=== PATIENT | female | born 1980 | race Caucasian/White ===

== ENCOUNTER 2018-08-06 08:39 | Outpatient (REF) | payer BC, SELFPAY ==
[2018-08-06 13:10] LABS: Cholesterol 232 mg/dL (50-200); Glucose 91 mg/dL (70-100); HDL Cholesterol 67 mg/dL (40-60); LDL CHOLESTEROL 147 mg/dL (<100); TSH (W/Ref FT4) 1.38 uIU/mL (0.358-3.74); Triglyceride 90 mg/dL (30-150)
== END 2018-08-06 08:59 ==
LOC: NCHCN 08:39
PROVIDERS: PCP Family Medicine; Visit Provider Family Medicine
DX: Z00.00 Encounter for general adult medical examination without abnormal findings (principal); R63.5 Abnormal weight gain; Z13.1 Encounter for screening for diabetes mellitus; Z13.220 Encounter for screening for lipoid disorders
CPT/HCPCS: 80061; 82947; 83721; 84443

== ENCOUNTER 2018-10-23 12:08 | Outpatient (REF) | payer BC, SELFPAY ==
[2018-10-23 15:31] LABS: *AMPHETAMINES SCREEN URINE Negative (Negative); *BARBITURATES SCREEN URINE Negative (Negative); *BENZODIAZEPINES SCREEN URINE Negative (Negative); Cannabinoids THC Negative (Negative); Cocaine Screen,Urine Negative (Negative); METHADONE URINE SCREEN Negative (Negative); OPIATES URINE SCREEN Negative (Negative)
[2018-10-23 15:34] LABS: Tricyclic Antidepressants Negative (Negative)
[2018-10-28 08:09] LABS: Buprenorphine Negative; Norbuprenorphine Negative
== END 2018-10-23 12:28 ==
LOC: LBN 12:08
PROVIDERS: PCP Family Medicine; Visit Provider Advanced Practice Midwife
DX: Z34.91 Encounter for supervision of normal pregnancy, unspecified, first trimester (principal)
CPT/HCPCS: 80307; 87077; 87086

== ENCOUNTER 2018-10-30 14:20 | Outpatient (CLI) | payer BC, SELFPAY ==
[2018-10-30 14:43] LABS: Abs Immature Grans 0.01 k/cumm (0.0-0.09); Absolute Basophil Count 0.01 k/cumm (0.0-0.2); Absolute Lymphocyte Count 1.91 k/cumm (1.2-3.4); Absolute Neutrophil Count 6.05 k/cumm (1.2-6.7); Basophils % 0.1; Eosinophils % 4.5; HCT 32.8 % (36.0-46.0); HGB 11.7 g/dL (12.0-15.5); Immature Grans % 0.1; Lymphocytes % 21.5; Mean Corp. HGB Concentration 35.7 g/dL (32.0-36.0); Mean Corpuscular Hemoglobin 31.6 pg (27.0-33.0); Mean Corpuscular Volume 88.6 fL (80-95); Mean Platelet Volume 10.4 fL (8.0-11.0); Monocytes % 5.6; Neutrophils % 68.2; Platelet Count 234 x1000/uL (130-400); RBC Distribution Width 11.2 % (11.7-14.6); White Blood Cell Count 8.88 k/cumm (4.4-10.8)
[2018-10-30 14:51] LABS: Glucose,1 Hr (Glucola) 127 mg/dL (80-140)
[2018-10-30 23:27] LABS: TSH (W/Ref FT4) 0.06 uIU/mL (0.358-3.74)
[2018-10-31 00:16] LABS: FREE T4 1.16 ng/dL (0.76-1.46)
[2018-10-31 09:33] LABS: HIV-1/2 Ag & Ab Screen Negative (NEGAT)
[2018-11-02 11:25] LABS: Hepatitis B Surface Ag Negative (NEGAT)
[2018-11-02 11:46] LABS: Varicella IgG Antibody Positive
[2018-11-02 11:49] LABS: Syphilis Serology (RPR) Negative (Negative)
[2018-11-02 12:00] LABS: Hepatitis C Ab w Rflx HCV PCR Negative (NEGAT)
[2018-11-02 13:13] LABS: Rubella IgG Ab (UVM) Positive
== END 2018-10-30 14:40 ==
PROVIDERS: PCP Family Medicine; Visit Provider Advanced Practice Midwife
DX: Z34.91 Encounter for supervision of normal pregnancy, unspecified, first trimester (principal); Z11.4 Encounter for screening for human immunodeficiency virus [HIV]; Z11.59 Encounter for screening for other viral diseases; Z01.84 Encounter for antibody response examination
CPT/HCPCS: 36415; 80055; 82950; 86787; 86803; 86850; 86900; 86901; 87340; 87389; 84439; 84443; 86592; 86762

== ENCOUNTER 2018-11-06 12:53 | Outpatient (REF) | payer BC, SELFPAY ==
[2018-11-09 13:40] LABS: Chlamydia Result Negative; GC Result Negative; Specimen Description CERVIX
== END 2018-11-06 13:13 ==
LOC: LBN 12:53
PROVIDERS: PCP Family Medicine; Visit Provider Advanced Practice Midwife
DX: Z34.91 Encounter for supervision of normal pregnancy, unspecified, first trimester (principal)
CPT/HCPCS: 87491; 87591

== ENCOUNTER 2018-11-11 11:03 | Outpatient (CLI) | payer BC, SELFPAY ==
[2018-11-11 11:45] LABS: Kit/Specimen SENT
[2018-11-19 16:58] LABS: Specimen WB Whole Blood
== END 2018-11-11 11:23 ==
PROVIDERS: PCP Family Medicine; Visit Provider Advanced Practice Midwife
DX: Z34.91 Encounter for supervision of normal pregnancy, unspecified, first trimester (principal); Z36.89 Encounter for other specified antenatal screening; O09.521 Supervision of elderly multigravida, first trimester
CPT/HCPCS: 36415; 81329

== ENCOUNTER 2018-12-28 10:04 | Outpatient (CLI) | payer BC, SELFPAY ==
[2018-12-28 11:54] LABS: TSH (W/Ref FT4) 0.79 uIU/mL (0.358-3.74)
== END 2018-12-28 10:24 ==
PROVIDERS: PCP Family Medicine; Visit Provider Advanced Practice Midwife
DX: Z34.92 Encounter for supervision of normal pregnancy, unspecified, second trimester (principal)
CPT/HCPCS: 36415; 84443; 87086

== ENCOUNTER 2019-01-06 00:18 | Outpatient (CLI) | payer BC, SELFPAY ==
--- NOTE | 2019-01-06 10:56 | DI.US_ITS ---
SYMPTOMS/DIAGNOSIS: LIMITED VIEW OF VENTRAL WALL/ABDOMINAL INSERTION, Z34.90 OB ULTRASOUND: Predicted Gestational Age: Indication/History: 21+5 Wks Range: to Prior US done on: Determined by: First US LMP History EDC by prior US: 05/14/19 For multiple gestations: Baby PLACENTA: Grade: 0-I Location: Anterior X Posterior PRESENTATION: RT X LT LOW LYING PREVIA Cephalic Trans (Head RT LT ) Varied Breech X BIOMETRY: Anatomy Identified: BPD: mm wks 4 chamber Heart Heart Rate 140 BPM HC: mm wks LVOT Post Fossa AC: mm wks RVOT Ventricles FL: mm wks Stomach Nose Bladder Lips Cisterna Magna: mm CI: Kidneys Palate Cerebellum: mm 3 vessel cord Spine EFW: grms % Cord Insertion X NS= not seen Composite Age (US) wks Many abnormalities cannot be diagnosed. A normal exam does not exclude congenital abnormality. EDC by US Amniotic Fluid Index: Normal RUQ: LUQ: RLQ: LLQ: Total: cm Biophysical Profile: Score 0/2 NELLA (>2cm) Respirations (>30 sec) Body flexion/extension Extremity flexion/extension TOTAL SCORE COMMENTS: The limited examination reveals a grade 0-I left posterior placenta. The cord insertion is normal. The cardiac rate was 140 beats per minute. Amniotic fluid is normal.
== END 2019-01-06 00:38 ==
PROVIDERS: PCP Family Medicine; Visit Provider Advanced Practice Midwife
DX: Z34.92 Encounter for supervision of normal pregnancy, unspecified, second trimester (principal); Z36.2 Encounter for other antenatal screening follow-up
CPT/HCPCS: 76815

== ENCOUNTER 2019-02-23 08:26 | Outpatient (CLI) | payer BC, SELFPAY ==
[2019-02-23 08:53] LABS: HCT 32.8 % (36.0-46.0); HGB 11.1 g/dL (12.0-15.5); Mean Corp. HGB Concentration 33.8 g/dL (32.0-36.0); Mean Corpuscular Hemoglobin 31.2 pg (27.0-33.0); Mean Corpuscular Volume 92.1 fL (80-95); Mean Platelet Volume 10.6 fL (8.0-11.0); Platelet Count 216 x1000/uL (130-400); RBC 3.56 m/cumm (4.00-5.20); RBC Distribution Width 11.9 % (11.7-14.6); White Blood Cell Count 12.03 k/cumm (4.4-10.8)
[2019-02-23 09:00] LABS: Glucose,1 Hr (Glucola) 120 mg/dL (80-140)
== END 2019-02-23 08:46 ==
PROVIDERS: Advanced Practice Midwife; PCP Family Medicine; Visit Provider Obstetrics & Gynecology Gynecology
DX: Z34.92 Encounter for supervision of normal pregnancy, unspecified, second trimester (principal)
CPT/HCPCS: 36415; 82950; 85027

== ENCOUNTER 2019-03-01 19:37 | Outpatient (REF) | payer BC, SELFPAY ==
[2019-03-01 19:37] LABS: Absolute Basophil Count 0.01 k/cumm (0.0-0.2); Absolute Eosinophil Count 0.08 k/cumm (0.0-0.7); Absolute Lymphocyte Count 1.16 k/cumm (1.2-3.4); Absolute Neutrophil Count 5.66 k/cumm (1.2-6.7); Basophils % 0.1; HCT 32.3 % (36.0-46.0); HGB 10.9 g/dL (12.0-15.5); Immature Grans % 1.3; Mean Corp. HGB Concentration 33.7 g/dL (32.0-36.0); Mean Corpuscular Hemoglobin 31.2 pg (27.0-33.0); Mean Corpuscular Volume 92.6 fL (80-95); Mean Platelet Volume 11.3 fL (8.0-11.0); Monocytes % 9.1; Neutrophils % 73.5; Platelet Count 147 x1000/uL (130-400); RBC 3.49 m/cumm (4.00-5.20); RBC Distribution Width 12.2 % (11.7-14.6); White Blood Cell Count 7.71 k/cumm (4.4-10.8)
[2019-03-01 19:40] LABS: ALT 64 U/L (12-78); AST 56 U/L (15-37); Albumin 2.6 g/dL (3.4-5.0); Alkaline Phosphatase 86 U/L (46-116); Anion Gap 9.3 mmol/L (3-11); BUN 12 mg/dL (7-18); Bilirubin, Total 0.3 mg/dL (0.2-1.0); CO2 23.7 mmol/L (21.0-32.0); Calcium 8.2 mg/dL (8.5-10.1); Chloride 102 mmol/L (98-107); Glucose 91 mg/dL (70-100); Potassium 4.1 mmol/L (3.5-5.1); Sodium 135 mmol/L (136-145); Total Protein 6.1 g/dL (6.4-8.2)
== END 2019-03-01 19:57 ==
LOC: NCHCN 19:37
PROVIDERS: PCP Family Medicine; Visit Provider Family Medicine
DX: R50.9 Fever, unspecified (principal)
CPT/HCPCS: 80053; 85025

== ENCOUNTER 2019-03-02 15:39 | Outpatient (CLI) | payer BC, SELFPAY ==
[2019-03-02 17:27] LABS: PROTEIN 69.6 mg/dL; Prot/Crea Ur Ratio 0.27
== END 2019-03-02 15:59 ==
PROVIDERS: PCP Family Medicine; Visit Provider Advanced Practice Midwife
DX: O26.893 Other specified pregnancy related conditions, third trimester (principal); O09.523 Supervision of elderly multigravida, third trimester; R50.9 Fever, unspecified; W57.XXXA Bitten or stung by nonvenomous insect and other nonvenomous arthropods, initial encounter; Z3A.29 29 weeks gestation of pregnancy
CPT/HCPCS: 59025; 82565; 84156

== ENCOUNTER 2019-03-12 09:26 | Outpatient (CLI) | payer BC, SELFPAY | END 2019-03-12 09:46 | PROVIDERS: PCP Family Medicine; Visit Provider Advanced Practice Midwife | DX: Z34.93 Encounter for supervision of normal pregnancy, unspecified, third trimester (principal); Z01.84 Encounter for antibody response examination | CPT/HCPCS: 36415; 86850; 90384 ==

== ENCOUNTER 2019-03-26 02:57 | Outpatient (CLI) | payer BC, SELFPAY ==
--- NOTE | 2019-03-26 09:01 | DI.US_ITS ---
SYMPTOM/DIAGNOSIS: H/O MARGINAL CORD INSERTION SEEN ON PRIOR USG Z34.90 OB ULTRASOUND: 03/26 OB ultrasound was performed utilizing limited 3rd trimester protocol. biometry is consistent with gestational age of 33 weeks 5 days and EDC 05/09/19 The estimated weight is 2183 grams which is at the 53rd percentile for predicted gestational age. Placenta is posterior with no evidence of placenta previa. There is visually a normal quantity of amniotic fluid and the NELLA is 13. The fetus is in cephalic presentation. cardiac activity observed at a rate of 137 BPM. Predicted Gestational Age: Indication/History: 33 +0 Wks Range: to Prior US done on: Determined by: XX First US LMP History EDC by prior US: 05/14/19 For multiple gestations: Baby PLACENTA: Grade: II Location: Anterior XX Posterior PRESENTATION: RT LT LOW LYING PREVIA Cephalic XX Trans (Head RT LT ) Varied Breech BIOMETRY: Anatomy Identified: BPD: 84 mm 33 +6 wks 4 chamber Heart Heart Rate 137 BPM HC: 308 mm 34 +2 wks LVOT Post Fossa AC: 292 mm 33 +1 wks RVOT Ventricles FL: 64 mm 33 +2 wks Stomach Nose Bladder Lips Cisterna Magna: mm CI: 80 Kidneys Palate Cerebellum: mm 3 vessel cord Spine EFW: 2183 grms 53 % Cord Insertion NS= not seen Composite Age (US) 33 +5 wks Many abnormalities cannot be diagnosed. A normal exam does not exclude congenital abnormality. EDC by US 05/09/19 Amniotic Fluid Index: Normal COMMENTS: RUQ: 4.65 LUQ: 3.20 RLQ: 3.20 LLQ: 2.38 Total: 13.4 cm Biophysical Profile: Score 0/2 NELLA (>2cm) Respirations (>30 sec) Body flexion/extension Extremity flexion/extension TOTAL SCORE
== END 2019-03-26 03:17 ==
PROVIDERS: PCP Family Medicine; Visit Provider Advanced Practice Midwife
DX: Z34.93 Encounter for supervision of normal pregnancy, unspecified, third trimester (principal)
CPT/HCPCS: 76816

== ENCOUNTER 2019-04-19 15:57 | Outpatient (REF) | payer BC, SELFPAY | END 2019-04-19 16:17 | LOC: LBN 15:57 | PROVIDERS: PCP Family Medicine; Visit Provider Advanced Practice Midwife | DX: Z34.93 Encounter for supervision of normal pregnancy, unspecified, third trimester (principal); Z36.85 Encounter for antenatal screening for Streptococcus B | CPT/HCPCS: 87081 ==

== ENCOUNTER 2019-05-07 09:46 | Outpatient (CLI) | payer BC, SELFPAY | END 2019-05-07 10:06 | PROVIDERS: PCP Family Medicine; Visit Provider Obstetrics & Gynecology Gynecology | DX: Z01.818 Encounter for other preprocedural examination (principal) ==

== ENCOUNTER 2019-05-10 10:56 | Outpatient (CLI) | payer BC, SELFPAY ==
[2019-05-10 11:33] LABS: HGB 11.6 g/dL (12.0-15.5); Mean Corp. HGB Concentration 34.1 g/dL (32.0-36.0); Mean Corpuscular Hemoglobin 31.1 pg (27.0-33.0); Mean Corpuscular Volume 91.2 fL (80-95); Mean Platelet Volume 10.7 fL (8.0-11.0); Platelet Count 230 x1000/uL (130-400); RBC 3.73 m/cumm (4.00-5.20); RBC Distribution Width 12.7 % (11.7-14.6); White Blood Cell Count 11.34 k/cumm (4.4-10.8)
[2019-05-10 12:21] LABS: Anion Gap 13.1 mmol/L (3-11); BUN 11 mg/dL (7-18); CO2 21.9 mmol/L (21.0-32.0); CREATININE 0.81 mg/dL (0.55-1.02); Chloride 103 mmol/L (98-107); Glucose 108 mg/dL (70-100); Potassium 4.1 mmol/L (3.5-5.1); Sodium 138 mmol/L (136-145)
== END 2019-05-10 11:16 ==
PROVIDERS: PCP Family Medicine; Visit Provider Obstetrics & Gynecology Gynecology
DX: O34.219 Maternal care for unspecified type scar from previous cesarean delivery (principal); E66.9 Obesity, unspecified; Z01.818 Encounter for other preprocedural examination; Z01.812 Encounter for preprocedural laboratory examination
CPT/HCPCS: 36415; 80048; 85027; 86850; 86900; 86901; 86920; 86870

== ENCOUNTER 2019-05-12 07:00 | Inpatient (IN) | payer BC, SELFPAY ==
--- NOTE | 2019-05-11 21:56 | HPE_ITS ---
Date of service: 05/10/19 Time of Service: 17:56 Assessment and Plan Assessment and plan (1) Previous section: Status: Chronic Assessment and plan: Pt has been counseled regarding risks of procedure including infection, damage to surrounding structures including bladder, bowel, blood vessels and ureters. Informed consent was obtained and her questions were answered. (2) : Status: Acute Assessment and plan: Plan interval IUD 8w PP. History of Present Illness History of Present Illness Chief Complaint: preop for elective repeat c/s at term Narrative: Pt is a 38yo female with MALICK of 05/14/19 who presents for preop H&P in anticipation of elective RC/S on 05/12/19. Pt is accompanied by her Klever. course: established care in 1st trimester. TWG 28lbs. S=D. 1st trimester BP 124/60 3rd trimester BP 106/64. Labs: Rh neg. Received Rhogam. GBS UCx in 1st trimester. Rx with Abx for presumed Lyme infection during . Imaging. Echogenic foci on 2nd trimester u/s for morphology. MFM consult at [facility]. No sequelae. Pt counseled during this regarding FELIPA/. Based on reasons for previous c/s she was given 25% chance of successful FELIPA and decided on RC/S. Plans IUD insertion after 6w PP visit. Review of Systems Constitutional Constitutional: Reports system reviewed and no additional complaints, except as docu Cardiovascular Cardiovascular: Reports system reviewed and no additional complaints, except as docu Respiratory Respiratory: Reports system reviewed and no additional complaints, except as docu Genitourinary Genitourinary: Reports system reviewed and no additional complaints, except as docu Musculoskeletal Musculoskeletal: Reports system reviewed and no additional complaints, except as docu Integumentary/Breasts Skin/Breast: Reports system reviewed and no additional complaints, except as docu PFSH Medical History (Updated 05/11/19 @ 22:06 by Arpita Blount MD) Rh negative state in antepartum period (Acute) Surgical History (Updated 04/24/18 @ 09:52 by Cristel Vargas NP) Previous section (Chronic) Social History (Updated 05/11/19 @ 22:07 by Arpita Blount MD) Smoking/Tobacco Use Status: Former Tobacco Use Alcohol Intake: former (prior to knowledge of ) Drug use: Never Substance use type: does not use Household members: spouse, children and other Details: H-Moy. Son Number of Children: 1 Communication Needs: None Sexually active: Yes Female Reproductive History Menstrual control method: progestin IUCD History History 2 Para 1 Hx # Term Pregnancies 1 Multiple births 0 Hx # Pregnancies 0 Ectopic pregnancies 0 AB induced 0 Hx Number of Living Children 1 AB spontaneous 0 Past Pregnancies Del. Date GA/Weeks # Outcome Route Wgt Sex Labor Lgth Anesthes ia Location Prov [facility] 05/28/14 40 No Successful 8 lb 8 oz Male [facility] hrs [facility] - several CNM's, OB was Dr. Segura Delivery Date: 05/28/14 On 10/23/18 @ 10:18 Awilda Lowe spontaneous labor, SROM +mec, dilated to 3 cm, C/S for FTP Meds Home Medications and Allergies Home Medications Medication Instructions Recorded Confirmed Type prenat.vits,puma,xca-wuua-qhzus 1 tab PO DAILY 10/02/18 05/10/19 History aspirin 81 mg tablet,delayed 81 mg PO DAILY #90 tab 10/23/18 05/10/19 Rx release calcium carbonate 200 mg calcium 200 mg PO BID PRN 04/09/19 05/10/19 History (500 mg) chewable tablet Allergies Allergy/AdvReac Type Severity Reaction Status Date / Time egg AdvReac Intermediate Itching Verified 05/10/19 10:06 Exam Const General: no acute distress Nutritional Appearance: obese Orientation: alert, awake and oriented x3 Resp Effort & Inspection: normal respiratory effort Auscultation: clear to auscultation bilaterally Cardio Rate: regular rate Rhythm: regular rhythm GI Inspection: normal to inspection (gravid. no focal uterine tenderness) Palpation: soft General: deferred Manual OB Exam: other (deferred.) Skin General skin exam: petechiae (on chest.) Trauma: no lacerations or abrasions Extrem General: normal to inspection and other (2+ DTRs. bilaterally)
[2019-05-12 06:32] VITALS: BP 108/71; PULSE 100; RESP 18; TEMP 36.6; O2SAT 96
[2019-05-12 06:35] VITALS: BP 108/71; PULSE 100; RESP 18; TEMP 36.6; O2SAT 96
[2019-05-12] MEDS: Lactated Ringers 1,000 ML 125 ML IV (06:53)
[2019-05-12] MEDS: ceFAZolin 2 GM/50 ML BAG IVPB (07:41)
--- NOTE | 2019-05-12 08:15 | OVAR_PTH ---
PATIENT: Christy Xavier LOC: OBS U#:[id number] AGE/SX: 38/F ROOM: OBS.305 RE05/12/[address]: Arpita Blount : 1980 BED: A DIS: 05/14/2019 SPEC #: [id number] RECD: 05/12/19 12:51 STATUS: JOE REQ #: [id number] ARIES: 05/12/19 08:[address]: Arpita Blount DEPT: Surgical Specimen RECD BY: Lucia Cadena ENTERED: 05/12/19 12:53 SP TYPE: GLORYR ISIS DR: Ibrahima Canales Tissues: 1 - OVARY BIOPSY Procedures: GROSS AND MICRO LEVEL 4 Comments: [id number]
[2019-05-12] MEDS: Scopolamine 1 MG/3 DAYS PATCH TD (08:30)
--- NOTE | 2019-05-12 09:30 | ROE_ITS ---
Date of service: 05/12/19 Time of Service: 09:30 Operative Note Operative Note DATE OF PROCEDURE: 05/12/19 PRE-OP DIAGNOSIS: IUP at term, elective repeat delivery POST-OP DIAGNOSIS: other (IUP at term, elective repeat delivery, left ovarian cystectomy.) PROCEDURE: scheduled repeat LTCS SURGEON: Arpita Blount MANUFACTURING QUALITY ENGINEER: Jarocho Maurer ANESTHESIA: spinal ESTIMATED BLOOD LOSS: 500 PATHOLOGY: other (cord blood to lab) COMPLICATIONS: None Patient was transported to: floor (Room 305) Patient's condition: stable Indications: 38 yo female who was counseled during this regarding trial of labor versus elective repeat delivery. Based on the patient's prior OB history she was quoted a 25% chance of successful trial of labor. After consideration she opted for a scheduled elective repeat delivery. Findings: Viable female weighing 7lbs 14oz, Apgars 8/9. Clear amniotic fluid normal uterine cavity. Calcified serosal fibroid approximately 3 cm in length 1 cm in width on the surface of the right uterus. 2 small serosal fibroids approximately 1 cm in width on the fundus and posterior surface of the uterus. Left ovarian cyst approximately 3 cm diameter was excised with smooth cyst wall. Procedure Description: Description of procedure patient was taken to the operating room she is placed in the sitting position where spinal anesthesia was administered without difficulty. She was then placed in the dorsal supine position with a leftward tilt prepped and draped in the usual sterile fashion a Blankenship catheter was inserted to gravity drainage the vagina was prepped with Betadine. Surgical timeout was performed SCDs are in place 2 g of Ancef were administered prior to skin incision. On the pulse the fetus was noted to be in the sue breech presentation with head to the maternal left the head was directed downwards with gentle pressure and was cephalic at the initiation of the procedure. A scalpel was used to incise along the previous Pfannenstiel scar and the underlying some cutaneous tissue was dissected using a Bovie electrocautery to the level of the rectus fascia the rectus fascia was then nicked in the midline with a scalpel and the incision was extended laterally using curved Blancas scissors. 2 Fanrock clamps were applied to the inferior aspect of the rectus fascia and the rectus fascia was dissected off of the underlying rectus muscles using blunt technique and scissors. Similar technique was carried out on the superior aspect of the incision. The rectus muscles were then in the midline the peritoneum entered bluntly and the peritoneal incision extended using curved Blancas scissors and blunt technique. Bladder blade was inserted into the abdominal incision and the bladder retracted away from the operative field. The bladder flap was created with an incision of the vesicle uterine fold and blunt dissection. Bladder blade was then reinserted to retract the bladder away from the operative field. Scalpel was used to incise lower uterine segment and a transverse fashion upon entry into the uterine cavity the excision was extended bluntly and the amniotic sac ruptured with clear amniotic fluid returned. head was floating and was brought to the uterine incision using fundal pressure. A Kiwi cup was applied to the head and the head was delivered with the synthesis of Kiwi cup and fundal pressure followed by trunk and lower extremities. Cord was doubly clamped and cut and the infant was handed off to waiting pediatric team. Cord blood was collected and the placenta was delivered with gentle cord traction and fundal massage of the uterus. Uterus was then exteriorized cleared of all clots and debris and inspected with the above-noted findings. Uterine incision was reapproximated with a running suture of 0 Vicryl and imbricated fashion. A second 0 Vicryl suture was used to complete the uterine closure. Interrupted sutures of 0 Vicryl in a yucaph-so-litwm fashion were used to control any oozing from 3 sites along the uterine incision line. While the uterus was exteriorized the service of the left ovary was incised and in the process of shelling out the left ovarian cyst cyst spontaneous rupture with clear fluid returned. Cyst wall was extracted from with in the ovary and sent to pathology. The bed of ovarian tissue was bleeding and the bleeding was controlled with interrupted [id number]-ym-[id number] sutures of 2-0 Vicryl. The surface of the left ovary was reapproximated with interrupted sutures of 2-0 Vicryl and at the completion was hemostatic. The uterus was carefully inspected both the left ovary and uterine incision were noted to be hemostatic. The uterus was returned to the abdomen. The peritoneum was reapproximated with a running suture of 2-0 Vicryl. Rectus fascia was reapproximated with a running suture of 0 Vicryl extending from the lateral margins overlapping in the midline. Simultaneous tissue was reapproximated with a running suture of 2-0 Vicryl and the skin was closed with a 4-0 Vicryl in a subcuticular fashion. Skin glue was applied to the incision. The uterus was massaged for any remaining clots and debris's. Patient was transferred to the hospital bed and transported to recovery area in stable condition all sponge lap needle counts correct x2
[2019-05-12] MEDS: Ketorolac 30 MG/ML VIAL IVP ×2 (13:59→20:20)
[2019-05-12] MEDS: Normal Saline Flush 10 ML SYR IVP (20:21)
[2019-05-13] MEDS: Ketorolac 30 MG/ML VIAL IVP ×2 (02:02→09:59)
[2019-05-13] MEDS: Normal Saline Flush 10 ML SYR IVP ×2 (02:02→10:03)
[2019-05-13 07:32] LABS: HCT 31.1 % (36.0-46.0); HGB 10.1 g/dL (12.0-15.5); Mean Corp. HGB Concentration 32.5 g/dL (32.0-36.0); Mean Corpuscular Hemoglobin 30.2 pg (27.0-33.0); Mean Corpuscular Volume 93.1 fL (80-95); Mean Platelet Volume 10.5 fL (8.0-11.0); Platelet Count 232 x1000/uL (130-400); RBC 3.34 m/cumm (4.00-5.20); RBC Distribution Width 13.2 % (11.7-14.6); White Blood Cell Count 14.88 k/cumm (4.4-10.8)
[2019-05-13] MEDS: oxyCODONE 5 mg/Acetaminophen 325 mg TAB PO ×3 (13:54→22:08)
[2019-05-13] MEDS: Ibuprofen 600 MG TAB PO ×2 (16:17→22:09)
[2019-05-13] MEDS: Calcium Carbonate *TUMS* 500 MG CHEW 1000 MG PO (18:31)
[2019-05-14] MEDS: oxyCODONE 5 mg/Acetaminophen 325 mg TAB PO ×2 (03:01→07:42)
[2019-05-14] MEDS: Ibuprofen 600 MG TAB PO ×2 (04:04→11:04)
== END 2019-05-14 13:30 | disposition home or self-care (01) | DRG 788 ==
PROVIDERS: Admitting Provider Obstetrics & Gynecology Gynecology; PCP Family Medicine; Visit Provider Obstetrics & Gynecology Gynecology
PROC: 10D00Z1 Extraction of Products of Conception, Low, Open Approach (ICD-10-PCS; CPT 59514; principal; 2019-05-12 07:30)
DX: O34.211 Maternal care for low transverse scar from previous cesarean delivery (principal); Z37.0 Single live birth; Z3A.39 39 weeks gestation of pregnancy; O32.1XX0 Maternal care for breech presentation, not applicable or unspecified; Z29.13 Encounter for prophylactic Rho(D) immune globulin; N83.202 Unspecified ovarian cyst, left side; D25.2 Subserosal leiomyoma of uterus
CPT/HCPCS: 59514; 58925; 36415; 85027; 85461; 86900; 86901; 88305; 90384; NC; J0690; J1885; J2405; J2790; J3010; J3490

== ENCOUNTER 2019-08-06 11:46 | Outpatient (REF) | payer BC, SELFPAY ==
--- NOTE | 2019-08-06 09:30 | PAPFT_PTH ---
PATIENT: Christy Xavier LOC: [facility] U#:[id number] AGE/SX: 38/F ROOM: RE08/06/[address]: Arpita Blount : 1980 BED: DIS: 08/06/2019 SPEC #: [id number] RECD: 08/06/19 12:58 STATUS: JOE REQ #: [id number] ARIES: 08/06/19 09:[address]: Arpita Blount DEPT: [facility] Cytology RECD BY: Lucia Cadena ENTERED: 08/06/19 12:58 SP TYPE: PAPFT OTHR DR: Ibrahima Canales Tissues: 1 - CX/ENDOCX FOR PAP SMEARS Procedures: PAP THIN PREP/UVM Screening HPV DNA PROBE Comments: [id number]
== END 2019-08-06 12:06 ==
LOC: LBN 11:46
PROVIDERS: PCP Family Medicine; Visit Provider Obstetrics & Gynecology Gynecology
DX: Z12.4 Encounter for screening for malignant neoplasm of cervix (principal); Z11.51 Encounter for screening for human papillomavirus (HPV)
CPT/HCPCS: 88142; 87624

== ENCOUNTER 2020-09-21 04:05 | Outpatient (CLI) | payer BC, SELFPAY ==
[2020-09-21 10:11] LABS: Abs Immature Grans 0.01 10^3/uL (0.0-0.06); Absolute Basophil Count 0.04 10^3/uL (0.0-0.2); Absolute Eosinophil Count 0.51 10^3/uL (0.0-0.7); Absolute Lymphocyte Count 2.22 10^3/uL (1.2-3.4); Absolute Monocyte Count 0.41 10^3/uL (0.1-0.8); Absolute Neutrophil Count 2.79 10^3/uL (1.2-6.7); Basophils % 0.7; Eosinophils % 8.5; HGB 14.4 g/dL (11.2-15.7); Immature Grans % 0.2; Lymphocytes % 37.1; MCH 31.9 pg (27.0-33.0); MCHC 34.3 % (32.0-36.0); MCV 92.9 fL (80-95); MPV 10.2 fL (8.0-11.0); Monocytes % 6.9; Neutrophils % 46.6; Nucleated RBC 0 %; Platelet Count 251 10^3/uL (130-400); RBC 4.52 10^6/uL (3.93-5.22); RDW 11.3 % (11.7-14.6); WBC 5.98 10^3/uL (4.4-10.8)
[2020-09-21 10:49] LABS: Anion Gap 8.3 mmol/L (3-11); BUN 17 mg/dL (7-18); CO2 29.7 mmol/L (21.0-32.0); Calcium 9.2 mg/dL (8.5-10.1); Chloride 105 mmol/L (98-107); Glucose 87 mg/dL (74-106); Potassium 5.3 mmol/L (3.5-5.1); Sodium 143 mmol/L (136-145)
[2020-09-21 10:54] LABS: HCG Qual (Serum) Negative
== END 2020-09-21 04:06 | disposition home or self-care (01) ==
LOC: LBO 04:05
PROVIDERS: PCP Family Medicine; Visit Provider Acupuncturist
DX: R11.0 Nausea (principal); R53.83 Other fatigue
CPT/HCPCS: 36415; 80048; 84703; 85025

== ENCOUNTER 2021-11-20 01:17 | Outpatient (CLI) | payer BC, SELFPAY ==
--- NOTE | 2021-11-20 15:30 | DI.MAMMO_ITS ---
Exam(s) MAMMO SCREENING EXAM: MAMMO SCREENING CLINICAL HISTORY: screening. TECHNIQUE: Bilateral full field digital CC and MLO mammographic images were obtained with 3D tomosyn thesis and utilizing computer aided detection (CAD). COMPARISON: Prior mammograms were reviewed, the most recent being April 2012. FINDINGS: Fibroglandular tissue pattern is again noted be moderately dense, this somewhat decreasing the sensit ivity of the mammogram for finding hidden underlying lesions. No new obvious spiculated masses nor malignant-appearing microcalcification groups in either breast. There is no significant architectural distortion nor skin thickening-retraction. IMPRESSION: Dense bilateral fibroglandular tissue. No obvious radiographic evidence of malignancy. BI-RADS Category 1 - Negative Breast Density - Category C - Heterogeneously dense Breast density Category C or D implies that the patient has dense breast tissue. Dense breast tissue can make it harder to find cancer on a mammogram. Dense breast tissue is also associated with an incr eased risk of breast cancer. This information about the result of the mammogram report was provided to the patient to raise their awareness. Use this report when you speak with the patient about their risks for breast cancer, which includes their family history. At that time, you may recommend additional screening tests (Ultrasoun d or MRI) as these tests may add significant information. A negative radiographic report should not delay biopsy if a dominant or clinically suspicious mass is present. Up to ten percent of cancers are not identified on mammography. A negative report may reinforce clinical impression. Adenosis and dense breasts may obscure an underlying neoplasm. False positive reports average 6 to 10%. Patient will receive a letter notifying them of these results.
== END 2021-11-20 01:37 ==
PROVIDERS: PCP Family Medicine; Visit Provider Obstetrics & Gynecology Gynecology
DX: Z12.31 Encounter for screening mammogram for malignant neoplasm of breast (principal)
CPT/HCPCS: 77063; 77067

== ENCOUNTER 2022-03-13 17:16 | Outpatient (REF) | payer BC, SELFPAY ==
[2022-03-13 21:59] LABS: ALT 20 U/L (14-59); AST 20 U/L (15-37); Alkaline Phosphatase 60 U/L (46-116); Anion Gap 7.6 mmol/L (3-11); BUN 19 mg/dL (7-18); Bilirubin, Total 0.3 mg/dL (0.2-1.0); CO2 29.4 mmol/L (21.0-32.0); CREATININE 0.9 mg/dL (0.55-1.02); Calcium 8.9 mg/dL (8.5-10.1); Calculated LDL 113 mg/dL (<100); Chloride 104 mmol/L (98-107); Cholesterol 239 mg/dL (<200); Glucose 112 mg/dL (74-106); HDL Cholesterol 61 mg/dL (40-60); Potassium 4.3 mmol/L (3.5-5.1); Sodium 141 mmol/L (136-145); Total Protein 7.3 g/dL (6.4-8.2); Triglyceride 326 mg/dL (<150)
[2022-03-13 22:15] LABS: Hemoglobin A1C 5.6 % (<5.7)
== END 2022-03-13 17:17 | disposition home or self-care (01) ==
LOC: NCHCN 17:16
PROVIDERS: PCP Family Medicine; Visit Provider Family Medicine
DX: E87.5 Hyperkalemia (principal); R74.8 Abnormal levels of other serum enzymes
CPT/HCPCS: 80053; 80061; 83036

== ENCOUNTER 2022-03-22 17:48 | Outpatient (CLI) | payer BC, SELFPAY ==
--- NOTE | 2022-03-22 18:00 | DI.RAD_ITS ---
Exam(s) XR LUMBAR SPINE COMPLETE EXAM: XR LUMBAR SPINE COMPLETE CLINICAL HISTORY: evaluate alignment and r/o herniation. TECHNIQUE: 2D digital imaging was performed. Five views. COMPARISON: No exams were available for comparison FINDINGS: BONES: No fracture or destructive lesion. Minimal endplate osteophytes. The vertebral bodies are oth erwise unremarkable. No facet hypertrophy identified. DISKS: Intervertebral disc spaces are maintained. ALIGNMENT: Lumbar spinal alignment is within normal limits. SOFT TISSUE: Normal. IMPRESSION: Unremarkable radiographs of the lumbar spine. DATA REPOSITORY: RADIATION DOSE DELIVERED:
--- NOTE | 2022-03-22 18:33 | DI.VRAD_ITS ---
PROCEDURE INFORMATION: Exam: XR Lumbosacral Spine Exam date and time: 03/22/2022 6:09 PM Age: 41 years old Clinical indication: Other: Evaluate alignment and R/O herniation TECHNIQUE: Imaging protocol: Radiologic exam of the lumbosacral spine. Views: 4 or 5 views. COMPARISON: No relevant prior studies available. FINDINGS: Bones/joints: Normal. No acute fracture. Normal alignment. Soft tissues: Unremarkable. Organs: IUD in place. IMPRESSION: No acute findings. Dictated and Authenticated by: Yessi Yuan MD. Ordering:GAGE Davis MD
== END 2022-03-22 18:08 ==
PROVIDERS: PCP Family Medicine; Visit Provider Nurse Practitioner Family
DX: M54.50 Low back pain, unspecified (principal); M79.604 Pain in right leg
CPT/HCPCS: 72110

== ENCOUNTER 2022-04-04 02:22 | Outpatient (CLI) | payer BC, SELFPAY ==
--- NOTE | 2022-04-04 | DI.RAD_ITS ---
Exam(s) XR CHEST 2V PA LATERAL EXAM: XR CHEST 2V PA LATERAL CLINICAL HISTORY: CHEST PAIN R07.9 TECHNIQUE: 2D digital imaging was performed of the chest. Two images were obtained. PA and lateral views were obtained. COMPARISON: No exams were available for comparison FINDINGS: MEDIASTINUM: Normal. HEART: Normal. PULMONARY VASCULATURE: Normal. LUNGS: Clear. PLEURAL SPACE: No pleural effusion or pneumothorax. BONE:Within normal limits for the patient's age. OTHER FINDINGS:Normal. IMPRESSION: No acute pulmonary findings. DATA REPOSITORY: RADIATION DOSE DELIVERED:
== END 2022-04-04 02:42 ==
LOC: DI 02:23
PROVIDERS: PCP Family Medicine; Visit Provider Family Medicine
DX: R07.89 Other chest pain (principal)
CPT/HCPCS: 71046

== ENCOUNTER 2022-07-30 01:49 | Outpatient (CLI) | payer BC, SELFPAY ==
--- NOTE | 2022-07-30 | DI.MRI_ITS ---
Exam(s) MR LUMBAR SPINE WO EXAM: MR LUMBAR SPINE WO CLINICAL HISTORY: LOW BACK PAIN, M54.50 WITH RADICULOPATHY DESPITE PT. TECHNIQUE: Multiplanar multisequence MRI of the Lumbar spine was performed. COMPARISON: CR,XR XR LUMBAR SPINE COMPLETE from 03/22/2022 FINDINGS: Bones: The last intervertebral disc space is designated the L5/S1 level for the numbering purpose of this examination. The vertebral body heights are well maintained. Alignment is satisfactory. There are endplate degenerative signal changes at L5-S1 and to a lesser degree at L4-L5. Cord: The conus tip ends at the L1 level. It is of normal size and signal intensity. T12-L1: No disc herniations or bulges are present. No central spinal canal or neural foraminal stenos is. L1-2: No disc herniations or bulges are present. No central spinal canal or neural foraminal stenosis . L2-3: No disc herniations or bulges are present. No central spinal canal or neural foraminal stenosis . L3-4: No disc herniations or bulges are present. No central spinal canal or neural foraminal stenosis . L4-5: There is a mild diffuse disc bulge. No central spinal canal or neural foraminal stenosis. L5-S1: There is a diffuse disc bulge and a small right paracentral disc herniation which appears to e xtruded posterior to the S1 vertebral body. It might impinge slightly onto the right S1 nerve root. No central spinal canal stenosis or neural foraminal stenosis is present. Soft tissues: The visualized SI joints and sacrum are well maintained. The paraspinal soft tissues ar e unremarkable. Visualized abdominal organs: Note is made of an atrophic left kidney. IMPRESSION: 1. Mild degenerative disc disease at L4-5 and L5-S1. 2. Small right paracentral disc herniation which appears to extruded posterior to the S1 vertebral margaret dy. It also appears to slightly impinge upon the right S1 nerve root. DATA REPOSITORY:
== END 2022-07-30 02:09 ==
LOC: DI 01:49
PROVIDERS: PCP Family Medicine; Visit Provider Family Medicine
DX: M51.36 Other intervertebral disc degeneration, lumbar region (principal); M51.37 Other intervertebral disc degeneration, lumbosacral region; M51.27 Other intervertebral disc displacement, lumbosacral region
CPT/HCPCS: 72148

== ENCOUNTER 2024-05-04 01:43 | Outpatient (CLI) | payer BC, SELFPAY ==
--- NOTE | 2024-05-04 08:42 | DI.MAMMO_ITS ---
Exam(s) MAMMO SCREENING EXAM: MAMMO SCREENING CLINICAL HISTORY: SCREENING, Z12.31 TECHNIQUE: Bilateral full field digital CC and MLO mammographic images were obtained with 3D tomosyn thesis and utilizing computer aided detection (CAD). COMPARISON: Available for comparison. FINDINGS: Masses/Architectural Distortion: None seen. Microcalcifications: No suspicious pleomorphic-type are seen. Skin Thickening/Nipple Retraction: None. IMPRESSION: 1. No significant interval change with no specific features of malignancy noted. 2. Unless there is more urgent need, screening mammography is recommended, as per [employer] guidelines. BI-RADS Category 1 - Negative Breast Density - Category C - Heterogeneously dense Breast density category C or D implies that the patient has dense breast tissue. Dense breast tissue is very common and is not abnormal but dense breast tissue can make it harder to find cancer on a ma mmogram. Also, dense breast tissue may increase their breast cancer risk. This information about the result of the mammogram report was provided to the patient to raise their awareness. Use this report when you speak with the patient about their risks for breast cancer, which includes their family hist ory. At that time, you may recommend for more screening tests (Ultrasound or MRI) as they might be us eful based on their risk. A negative radiographic report should not delay biopsy if a dominant or clinically suspicious mass is present. Up to ten percent of cancers are not identified on mammography. A negative report may reinforce clinical impression. Adenosis and dense breasts may obscure an underlying neoplasm. False positive reports average 6 to 10%. Patient will receive a letter notifying them of these results.
== END 2024-05-04 02:03 ==
LOC: DI 01:43
PROVIDERS: PCP Family Medicine; Visit Provider Student in an Organized Health Care Education/Training Program
DX: Z12.31 Encounter for screening mammogram for malignant neoplasm of breast (principal)
CPT/HCPCS: 77063; 77067

== ENCOUNTER 2024-11-23 11:27 | Outpatient (REF) | payer BC, SELFPAY | END 2024-11-23 11:28 | disposition home or self-care (01) | LOC: LBN 11:27 | PROVIDERS: PCP Student in an Organized Health Care Education/Training Program; Visit Provider Obstetrics & Gynecology | DX: Z12.4 Encounter for screening for malignant neoplasm of cervix (principal) | CPT/HCPCS: 88142; 87624 ==

== ENCOUNTER 2025-01-20 13:51 | Outpatient (REF) | payer BC, SELFPAY ==
[2025-01-20 19:17] LABS: Glucose Negative (Negative)
[2025-01-20 19:24] LABS: C & S Indicated? No; RBC 0-2 HPF (0-2)
== END 2025-01-20 13:52 | disposition home or self-care (01) ==
LOC: NCHCN 13:51
PROVIDERS: PCP Student in an Organized Health Care Education/Training Program; Visit Provider Nurse Practitioner Family
DX: R35.0 Frequency of micturition (principal)
CPT/HCPCS: 81003; 81015

== ENCOUNTER 2025-03-21 11:06 | Emergency (ER) | payer BC, SELFPAY ==
[2025-03-21] VITALS (17 sets, daily range): BP systolic 106–127; BP diastolic 59–83; PULSE 63–93; RESP 8–24; TEMP 36.3; O2SAT 79–100
--- NOTE | 2025-03-21 11:00 | RT.EKG_ITS ---
APPROVED REPORT Exam: Resting ECG Reason for Exam: Chest Pain Patient Location: E HR:93 bpm ECG Measurements Heart Rate 93 AXIS MO 131 P 78 QRSd 83 QRS 66 QT 360 T 54 QTc 449 Conclusion Sinus rhythm...normal P axis, V-rate 60- 99 No Occlusion MA
--- NOTE | 2025-03-21 11:30 | DI.RAD_ITS ---
Exam(s) XR CHEST 2V PA LATERAL EXAM: XR CHEST 2V PA LATERAL CLINICAL HISTORY: Chest pain TECHNIQUE: 2D digital imaging was performed of the chest. Two images were obtained. PA and lateral views were obtained. COMPARISON: CR XR CHEST 2V PA LATERAL from 04/04/2022 FINDINGS: MEDIASTINUM: Normal. HEART: Normal. PULMONARY VASCULATURE: Normal. LUNGS: Clear. PLEURAL SPACE: No pleural effusion or pneumothorax. BONE:Within normal limits for the patient's age. OTHER FINDINGS:Normal. IMPRESSION: No acute pulmonary findings. DATA REPOSITORY: RADIATION DOSE DELIVERED:
--- NOTE | 2025-03-21 11:40 | W.ED.GENAD ---
Discharge Plan Disposition Patient Disposition: Home Discharge Details Clinical Impression: Chest pain, unspecified Primary Care Provider: Andrew Cazares ED Provider: Ibrahima Pichardo Home Meds and New Rx's Prescriptions: Continued cholecalciferol (vitamin D3) 400 unit capsule 400 unit PO DAILY ParaGard T 380A 380 square mm intrauterine device 1 device IY ONCE Qty: 1 0RF Rx Instructions: as a single dose melatonin 1 mg/4 mL drops 0.125 mg PO HS PRN tirzepatide 5 mg/0.5 mL pen injector 5 mg subcut QWEEK PRN Discharge Instructions Additional Instructions: You are seen in the emergency department for your chest pain. Your blood work showed no sign of any damage to your heart. Your x-ray showed no sign of pneumonia. As we discussed if you develop worsening pain if you pass out or if you have any other concerns please return to the emergency department. Otherwise please follow-up with your primary care provider as needed. You may touch base about the possibility of a stress test. Discharge Data Discharge Date/Time-TO BE ENTERED AT DEPARTURE: 03/21/25 13:17 HPI General Date/Time Provider Initiated Documentation: 03/21/25 11:29. HPI Narrative: MDM This is an overall quite well-appearing afebrile not tachycardic 44-year-old female with chest pain left arm tingling for which patient will undergo troponin testing in the emergency department to assess for ACS. Her ECG was nonischemic showing normal axis intervals within normal limits. She does have T wave flattening in aVL. No prior for comparison. No acute injury pattern. No positional pain nor recent URI symptoms nor fevers to suggest pericarditis. No tearing quality to suggest zoster. Patient has not been vomiting so my suspicion is low for esophageal rupture. Patient is not feeling shortness of breath and is PERC negative so I did not send a D-dimer. No rash to chest to suggest zoster. No recent cough nor abnormal lung sounds to suggest COVID. Equal breath sounds no trauma so my suspicion is low for pneumothorax. No pain out of proportion to suggest necrotizing soft tissue infection. Patient is not hypotensive nor tachycardic and she is not a dialysis patient so my suspicion is low for cardiac tamponade. With emergency department mechanical test technician Frida and patient's as chaperones I completed a right breast exam. Patient did have some mild tenderness and fullness in the 11 o'clock position of her right breast 2 cm from the nipple. There is no nipple retraction nor any nipple discharge. Patient is pending outpatient imaging evaluation previously arranged by [employer]. Not suspicious for breast abscess in the absence of fluctuance skin changes fevers. Given that her breast is not painful I do not feel that her chest pain is resulting in the abnormality in her right breast. 12:18 PM Undetectable troponin. Basic metabolic panel with no MUSA. Mild gap acidosis but normal bicarbonate. Mild hyperglycemia. Not consistent with DKA. CBC lacks anemia thrombocytopenia leukocytosis. Negative hCG. HEART SCORE Chest pain Diagnostic Protocol: [-History/Physical/Gestalt: Slightly Suspicious (0)] [- EKG: Nonspecific repolarization (+1)] [- AGE: 45-65 (+1)] [- RISK FACTORS: 1 - 2 risk factors (+1)] [-TROPONIN: <= normal limit (0)] - TOTAL SCORE: 3 - Risk Factors: DM, current or recent smoker, HTN, HLD, family hx of CAD, obesity - INTERPRETATION: With a total score of 3 or less, risk of major cardiac event within six weeks 1.7%, likely lower with two negative troponins. [I explained to the patient that the risk of subsequent major cardiac event within 1 month is not 0, however risk predicted to be less than 2%. Patient verbalized understanding, accepts this risk and shared and the decision for discharge with PCP follow-up for further evaluation and management. They understand to return to the ED immediately with any worsening symptoms, new symptoms or other concerns.] 4:15 PM Late charting due to patient care. Patient felt improved in the emergency department. She said that her numbness had resolved. She was curious as to whether or not she may have had a panic attack as her heart rate reportedly was elevated. This usually could have explained her symptoms but I requested that she return to emergency department if she develops shortness of breath worsening chest pain developed any recurrent palpitations or if she develops any syncope. She understood her return indications and was discharged with empiric trial of expectant outpatient management. HPI This is a patient with a family history of heart disease presenting with chest pain. The patient began experiencing chest pain yesterday morning, similar to an episode she had a week prior that resolved on its own. The current pain has been constant since its onset. The pain is located in the sternum and radiates up and down this area. She describes the pain as steady and notes that it intensifies when she leans forward. She reports that ibuprofen alleviates the pain. This morning, she experienced numbness in her right hand, which she attributes to her sleeping position. She also reports episodes of rapid heart rate and shakiness. She has a history of mild anxiety but has never experienced these symptoms before. She reports no history of high blood pressure or diabetes. She is not on any medications. The patient does not smoke but drinks alcohol occasionally. She reports no rash on her chest. Two weeks ago, she noticed tenderness in her right breast and underwent a breast exam, which revealed a thickening in her right breast. She describes a sensation of tightness or fullness in her breast, which was initially suspected to be a swollen lymph node. This sensation extends into her armpit and shoulder, causing mild tenderness. A diagnostic mammogram is scheduled for tomorrow. Exam General: Well-appearing in no acute distress speaking in complete sentences. Head: Normocephalic, atraumatic. Eye: Extraocular eye movements intact. No conjunctival injection. No scleral icterus. Ear, nose, mouth, throat: Grossly normal inspection. Normal voice, handling secretions normally. Neck: Trachea midline. Cardiovascular: Well-perfused distal extremities. Regular rate and rhythm Respiratory: Nonlabored respiration. Clear lungs bilaterally. Gastrointestinal: Nondistended abdomen. Soft nontender. Chest wall: No rash to chest wall. Patient does have some sternal tenderness on palpation. Breast:With emergency department mechanical test technician Frida and patient's as chlorine cell tender chaperones I completed a breast exam. At the 11 o'clock position patient's right breast there is a small area of fullness that measures approximately 2 x 2 cm. It is mobile. There is no nipple retraction. No erythema. No fluctuance. Musculoskeletal: No edema. Moving all 4 extremities spontaneously. Skin: Normal for age and race, grossly normal temperature and turgor. No acute rash. Neurologic: Alert and appropriate, no apparent acute deficits. Psychiatric: Mood and manner are appropriate. Grooming and personal hygiene are appropriate. Related Data Home Medications ?Medication ?Instructions ?Recorded ?Confirmed cholecalciferol (vitamin D3) 10 400 unit PO DAILY 07/08/19 03/21/25 mcg (400 unit) capsule copper 380 square mm intrauterine 1 device intrauterine ONCE #1 ea 07/08/19 03/21/25 device (ParaGard T 380A) melatonin 1 mg/4 mL oral drops 0.125 mg PO HS PRN 10/18/21 03/21/25 tirzepatide 5 mg/0.5 mL 5 mg subcut QWEEK PRN 11/02/24 03/21/25 subcutaneous pen injector Previous Rx's ?Medication ?Instructions ?Recorded copper 380 square mm intrauterine 1 device intrauterine ONCE #1 ea 07/08/19 device (ParaGard T 380A) Allergies Allergy/AdvReac Type Severity Reaction Status Date / Time amoxicillin Allergy Intermediate rash Verified 03/21/25 11:16 lorazepam Allergy Intermediate nausea, Verified 03/21/25 11:16 hives, vomiting egg AdvReac Intermediate Itching Verified 03/21/25 11:16 General Stated Complaint: Chest Pain ALESHA: 3 Course Vital Signs Vital signs: Vital Signs Temperature 36.3 C L 03/21/25 11:09 Pulse 77 03/21/25 11:09 Respiratory Rate 20 03/21/25 11:09 Blood Pressure 127/81 03/21/25 11:09 Pulse Oximetry 99 03/21/25 11:09 Temperature 36.3 C L 03/21/25 11:09 Temperature Source Oral 03/21/25 11:09 Pulse 77 03/21/25 11:09 Respiratory Rate 20 03/21/25 11:09 Blood Pressure 127/81 03/21/25 11:09 Blood Pressure Position Sitting 03/21/25 11:09 Pulse Oximetry 99 03/21/25 11:09 Oxygen Delivery Method Room Air 03/21/25 11:09 Oxygen Flow Rate 0 03/21/25 11:09 Pain Level 3 03/21/25 11:09 PFSH All Active Problems (Updated 03/21/25 @ 12:49 by Ibrahima Pichardo MD) Chest pain, unspecified (Acute) Breast mass, right (Acute) Body mass index 30.0-30.9, adult (Acute) IUD (intrauterine device) in place (Acute) 07/08/2019 ParaGard IUD inserted Medical History Intervertebral disc disorder Residual hemorrhoidal skin tags Hyperlipidemia Uterine leiomyoma Melanocytic nevus of skin Advanced maternal age (AMA) in Surgical History History of appendectomy Previous section Social History Smoking/Tobacco Use Status: Former Tobacco Use Smoking risk assessment performed?: Yes Alcohol Intake: former Drug use: Never Substance use type: does not use Household members: spouse, children and other Details: H-Moy. Son-Stormy. Daughter-Mamie. Number of Children: 1 Communication Needs: None Sexually active: Yes Female Reproductive History Menstrual control method: progestin IUCD History History 2 Para 2 Hx # Term Pregnancies 2 Multiple births 0 Hx # Pregnancies 0 Ectopic pregnancies 0 AB induced 0 Hx Number of Living Children 2 AB spontaneous 0 Past Pregnancies Del. Date GA/Weeks # Preg Succ Route Wgt Sex Labor Lgth Anesthesia Location [facility] 05/28/14 41 No 3855.535 g Male 51 hrs regional [facility] - several CNM's, OB was Dr. Segura 05/12/19 39 No 3572.04 g Female Arpita Blount Delivery Date: 05/28/14 Last Updated by: Arpita Blount M.D. spontaneous labor, SROM +mec, dilated to 3 cm, C/S for FTP. Stormy. Delivery Date: 05/12/19 Last Updated by: Arpita Blount M.D. elective C/S. F named Yanga. Previous uterine fibroids had decreased. Benign R ovarian cyst. PAWSS Have you Been Recently Intoxicated or Drunk Within the Last 30 days?: No Have you Ever Experienced Previous Episodes of Alcohol Withdrawal?: No Have you ever Experienced Withdrawal Seizures?: No Have you ever Experienced Delirium Tremens(DT)s?: No Have you ever undergone Alcohol Rehabilitation Treatment (i.e, inpt ot outpatient treatment programs)?: No Have you ever Experienced Blackouts?: No Have you ever Combined Alcohol with other Downers within the last 90 days?: No Have you ever Combined Alcohol with any other Substance of Abuse during the last 90 days?: No Positive Blood Alcohol level on Presentation? [PCS.BAL]: No Evidence of Increased Autonomic Activity (i.e. HR>120, tremor, sweating, agitation, nausea)?: No Result: 0
[2025-03-21 11:51] LABS: Abs Immature Grans 0.02 10^3/uL (0.0-0.06); HCT 41.6 % (36.0-46.0); HGB 14.4 g/dL (11.2-15.7); Immature Grans % 0.3 %; MCH 30.8 pg (27.0-33.0); MCHC 34.6 % (32.0-36.0); MCV 89 fL (80-95); MPV 10.0 fL (8.0-11.0); Platelet Count 302 10^3/uL (130-400); RBC 4.67 10^6/uL (3.93-5.22); RDW 11.3 % (11.7-14.6); RDW-SD 36.6 fL; WBC 6.40 10^3/uL (4.4-10.8)
[2025-03-21 12:01] LABS: HCG Qual (Serum) Negative
[2025-03-21 12:07] LABS: Anion Gap 12.3 mmol/L (3-11); BUN 14 mg/dL (7-18); CO2 23.7 mmol/L (21.0-32.0); Calcium 9.7 mg/dL (8.5-10.1); Chloride 103 mmol/L (98-107); Estimated GFR 80.34 (mL/min/1.73m2); Glucose 111 mg/dL (74-106); Potassium 3.5 mmol/L (3.5-5.1); Sodium 139 mmol/L (136-145)
[2025-03-21 12:08] LABS: Troponin I < 4 ng/L (<or=51)
[2025-03-21] MEDS: Ketorolac 15 MG/ML VIAL IVP (12:51)
[2025-03-21 13:01] LABS: Troponin I < 4 ng/L (<or=51)
== END 2025-03-21 13:17 | disposition home or self-care (01) ==
LOC: ER 13:21
PROVIDERS: Emergency Provider Emergency Medicine; PCP Student in an Organized Health Care Education/Training Program
DX: R07.9 Chest pain, unspecified (principal)
CPT/HCPCS: 99283; 99284; 96374; 36415; 80048; 93005; 71046; 84484; 84703; 85025; 93010; J1885

== ENCOUNTER 2025-03-22 07:05 | Outpatient (CLI) | payer BC, SELFPAY ==
--- NOTE | 2025-03-22 06:45 | DI.MAMMO_ITS ---
Exam(s) US BREAST RT LIMITED MG MAMMO DIAGNOSTIC BI EXAM: MG MAMMO DIAGNOSTIC BI CLINICAL HISTORY: Palpable right sided breast mass,dense breast tissue,n63.10. COMPARISON: MG MG MAMMO SCREENING from 11/20/2021 MG MG MAMMO SCREENING from 05/04/2024 TECHNIQUE: Craniocaudal and mediolateral oblique Full Field Digital Mammography views of both breasts with Computer Aided Diagnosis followed by Tomosynthesis and right breast ultrasound. FINDINGS: Mammography/Tomosynthesis: Masses: None seen. Architectural Distortion: None seen. Microcalcifications: No suspicious pleomorphic-type are seen. Skin Thickening/Nipple Retraction: None. Right breast US: Echotexture: Normal appearance of the glandular tissue. There is dense tissue in the upper outer quadrant Shadowing: No suspicious foci. Cyst: None. Solid lesions: None seen. Ductal dilation: None. IMPRESSION: 1. No evidence of malignancy is noted. 2. Unless there is more urgent need, recommended in 1 year. BI-RADS Category 1 - Negative Breast Density - Category C - The breast are heterogeneously dense, which may obscure small masses. Breast density Category C or D implies that the patient has dense breast tissue. Dense breast tissue can make it harder to find cancer on a mammogram. Dense breast tissue is also associated with an increased risk of breast cancer. This information about the result of the mammogram report was provided to the patient to raise their awareness. Use this report when you speak with the patient about their risks for breast cancer, which includes their family history. At that time, you may recommend additional screening tests (Ultrasound or MRI) as these tests may add significant information. A negative radiographic report should not delay biopsy if a dominant or clinically suspicious mass is present. Up to ten percent of cancers are not identified on mammography. A negative report may reinforce clinical impression. Adenosis and dense breasts may obscure an underlying neoplasm. False positive reports average 6 to 10%. Patient will receive a letter notifying them of these results.
== END 2025-03-22 07:25 ==
PROVIDERS: PCP Student in an Organized Health Care Education/Training Program; Visit Provider Obstetrics & Gynecology
DX: Z12.31 Encounter for screening mammogram for malignant neoplasm of breast (principal); R92.30 Dense breasts, unspecified
CPT/HCPCS: 76642; 77062; 77066; G0279

== ENCOUNTER 2025-03-24 20:49 | Outpatient (REF) | payer BC, SELFPAY ==
[2025-03-24 22:13] LABS: ALT 22 U/L (14-59); AST 17 U/L (15-37); Albumin 4.1 g/dL (3.4-5.0); Alkaline Phosphatase 56 U/L (46-116); Anion Gap 9.9 mmol/L (3-11); BUN 13 mg/dL (7-18); Bilirubin, Total 0.4 mg/dL (0.2-1.0); CO2 28.1 mmol/L (21.0-32.0); Calcium 9.6 mg/dL (8.5-10.1); Chloride 103 mmol/L (98-107); Estimated GFR 80.34 (mL/min/1.73m2); Glucose 95 mg/dL (74-106); Lipase 38 U/L (<78); Potassium 4.3 mmol/L (3.5-5.1); Sodium 141 mmol/L (136-145); Total Protein 7.4 g/dL (6.4-8.2)
== END 2025-03-24 20:50 | disposition home or self-care (01) ==
LOC: LBN 20:49
PROVIDERS: PCP Student in an Organized Health Care Education/Training Program; Visit Provider Physician Assistant Medical
DX: R10.13 Epigastric pain (principal)
CPT/HCPCS: 80053; 83690

== ENCOUNTER 2025-05-17 21:32 | Outpatient (REF) | payer BC, SELFPAY ==
[2025-05-17 20:24] LABS: Calculated LDL 127 mg/dL (<100); Cholesterol 219 mg/dL (<200); HDL Cholesterol 62 mg/dL (>or=50); TSH (W/Ref FT4) 0.77 uIU/mL (0.36-3.74); Triglyceride 152 mg/dL (<150); Vitamin D 25 Total 44 ng/mL (30-100)
[2025-05-17 20:44] LABS: Hemoglobin A1C 5.0 % (<5.7)
[2025-05-18 10:51] LABS: Vitamin B12 720 pg/mL (193-986)
== END 2025-05-17 21:33 | disposition home or self-care (01) ==
LOC: NCHCN 21:32
PROVIDERS: PCP Student in an Organized Health Care Education/Training Program; Visit Provider Student in an Organized Health Care Education/Training Program
DX: Z13.1 Encounter for screening for diabetes mellitus (principal); F41.9 Anxiety disorder, unspecified; E78.5 Hyperlipidemia, unspecified; E55.9 Vitamin D deficiency, unspecified; K14.8 Other diseases of tongue
CPT/HCPCS: 80061; 82306; 82607; 83036; 84443